=== PATIENT | male | born 1970 | race Caucasian/White ===

== ENCOUNTER 2018-08-11 13:36 | Inpatient (IN) | payer OTHER ==
[2018-08-11 16:00] VITALS: BMI 30.2
--- NOTE | 2018-08-11 17:43 | HP ---
CIWA Score - Admission Criteria [facility]ASAS Guidelines: Admission for Medically Managed Detox: Requires at least one of the followin. CIWA greater than 12 2. Seizures within the past 24 hours 3. Delirium tremens within the past 24 hours 4. Hallucinations within the past 24 hours 5. Acute intervention needed for co occurring medical disorder 6. Acute intervention needed for co occurring psychiatric disorder 7. Severe withdrawal that cannot be handled at a lower level of care (continued vomiting, continued diarrhea, abnormal vital signs) requiring intravenous medication and/or fluids 8. Admission ROS [facility] Chief Complaint: "I am here for cocaine/crack" rehab Allergies/Adverse Reactions: Allergies Allergy/AdvReac Type Severity Reaction Status Date / Time cefaclor [From Ceclor] Allergy Severe Hives Verified 08/11/18 16:21 piperacillin sodium AdvReac Severe numbness Verified 08/11/18 16:21 [From Zosyn] sulfamethoxazole AdvReac Severe fever Verified 08/11/18 16:21 [From Bactrim] tazobactam sodium AdvReac Severe numbness Verified 08/11/18 16:21 [From Zosyn] trimethoprim [From Bactrim] AdvReac Severe fever Verified 08/11/18 16:21 History of Present Illness: Pt was last here 2 years ago for crack cocaine use- says did not use for a year and then relapsed about a year ago. Uses $150/day. Smokes cocaine Lives in [facility], [facility] [employer]. Says cocaine has taken over his life and would like to stop. Medical problems: HIV: VL high, CD4- 38: 04/2018- does not take meds every day. Neuropathy- gabapentin Depression- no meds seizure d/o- takes Keppra asthma- pump DUR/ISTOP: oxycodone 12/2017, none recently urine tox: bob and opiates - Ebola screening Have you traveled outside of the country in the last 21 days: No Have you had contact with anyone from an Ebola affected area: No Have you been sick,other than usual withdrawal symptoms: No Do you have a fever: No - Review of Systems Constitutional: No Symptoms Reported EENT: reports: No Symptoms Reported Respiratory: reports: No Symptoms reported Cardiac: reports: No Symptoms Reported GI: reports: No Symptoms Reported : reports: No Symptoms Reported Musculoskeletal: reports: No Symptoms Reported Integumentary: reports: Other (has wound/rash on both legs, changes dressing daily) Neuro: reports: No Symptoms reported Endocrine: reports: No Symptoms Reported Hematology: reports: No Symptoms Reported Psychiatric: reports: No Sypmtoms Reported Patient History - Patient Medical History Hx Asthma: Yes (Pt is on MDI.) Hx Chronic Obstructive Pulmonary Disease (COPD): No Hx Cancer: Yes (nodules on chest xray) Hx Cardiac Disorders: No Hx Congestive Heart Failure: No Hx Hypertension: No Hx Hypercholesterolemia: No Hx Pacemaker: No HX Cerebrovascular Accident: Yes (2003,COMATOSE X 7 MONTHS) Hx Seizures: No Hx Dementia: No Hx Diabetes: No Hx Gastrointestinal Disorders: No Hx Liver Disease: No Hx Genitourinary Disorders: No Hx Sexually Transmitted Disorders: No Hx Renal Disease (ESRD): No Hx Thyroid Disease: No Hx Human Immunodeficiency Virus (HIV): Yes (hx of pcp) Hx Hepatitis C: No Hx Depression: Yes Hx Suicide Attempt: Yes (Tried to overdose more than 6 months.) Hx Bipolar Disorder: Yes (NO MEDS) Hx Schizophrenia: No Other Medical History: h/o DVT and now with chronic venous stasis both legs - Patient Surgical History Past Surgical History: Yes Hx Neurologic Surgery: No Hx Cataract Extraction: No Hx Cardiac Surgery: No Hx Lung Surgery: No Hx Breast Surgery: No Hx Breast Biopsy: No Hx Abdominal Surgery: Yes (liver resection in 02/19) Hx Appendectomy: No Hx Cholecystectomy: Yes (02/15/14) Hx Genitourinary Surgery: No Hx Section: No Hx Orthopedic Surgery: No Other Surgical History: Rhinoplasty Anesthesia Reaction: Yes - PPD History Previous Implant?: Yes Documented Results: Negative w/o proof Implanted On Prior [facility] Admission?: No Date: 11/25/13 Results: NEG - Smoking Cessation Smoking history: Current every day smoker Have you smoked in the past 12 months: Yes Aproximately how many cigarettes per day: 20 Hx Chewing Tobacco Use: No Initiated information on smoking cessation: Yes 'Breaking Loose' booklet given: 08/11/18 - Substance & Tx. History Hx Alcohol Use: Yes (2 beers day) Substance Use Type: Cocaine (20 bags a day- $150/day) Hx Substance Use Treatment: Yes (has been here 2 days) - Substances Abused Alcohol Route: Oral Frequency: Daily Amount used: 2 four locos Age of first use: 23 Date of Last Use: 08/10/18 Crack Route: Smoking Frequency: Daily Amount used: $100-$150 Age of first use: 24 Date of Last Use: 08/10/18 Family Disease History - Family Disease History Family Disease History: Diabetes: Mother (HTN), Heart Disease: Grandparent (HTN) , Father (HTN), Mother Admission Physical Exam [facility] - Vital Signs Vital Signs: Vital Signs - 24 hr 08/11/18 15:59 Temperature 99.3 F Pulse Rate 82 Respiratory 18 Rate Blood Pressure 123/70 - Physical General Appearance: Yes: Disheveled HEENTM: Yes: Within Normal Limits, Pharynx Normal Respiratory: Yes: Within Normal Limits Neck: Yes: Within Normal Limits Breast: Yes: Breast Exam Deferred Cardiology: Yes: Within Normal Limits Abdominal: Yes: Within Normal Limits Genitourinary: Yes: Other (reddened skin around groin- itchy) Back: Yes: Within Normal Limits Musculoskeletal: Yes: Within Normal Limits Extremities: Yes: Other (has venous stasis changes both legs, R leg more extensive than L, minimal open areas) Neurological: Yes: Within Normal Limits, Fully Oriented, Alert Integumentary: Yes: Other (bilateral venous stasis changes lower extr- R leg worse than L, has had this for many years, no recent change, no warmth to touch. ) [facility] Breath Alcohol Content Breath Alcohol Content: 0 Urine Drug Screen - Results Drug Screen Negative: No Urine Drug Screen Results: BOB-Cocaine, OPI-Opiates Inpatient Rehab Admission - Initial Determination Are CD services needed?: Yes Free of communicable disease: Yes Not in need of hospitalization: No - Rehab Admission Criteria Previous failed treatment: Yes Poor recovery environment: Yes Comorbidities: Yes Lacks judgement: No Patient is meeting Inpatient Rehab admission criteria:: Yes (pt uses cocaine, not taking HIV meds)
[2018-08-11] MEDS ORDERED: MAG HYDROX/AL HYDROX/SIMETH 30 ML UNIT-DOSE CUP PO PRN (18:32)
[2018-08-11] MEDS ORDERED: P-EPHED 60MG/TRIPROLIDI 2.5MG TABLET PO PRN (18:32)
[2018-08-11] MEDS ORDERED: LOPERAMIDE HCL 2 MG CAPSULE PO PRN (18:32)
[2018-08-11] MEDS ORDERED: IBUPROFEN 400 MG TABLET (FP) PO PRN (18:32)
[2018-08-11] MEDS ORDERED: MAGNESIUM CITRATE 300 ML BOTTLE PO PRN (18:32)
[2018-08-11] MEDS ORDERED: guaiFENesin/D-METHORPHAN HB 10 ML UNIT-DOSE CUPS PO PRN (18:32)
[2018-08-11] MEDS ORDERED: MENTHOL/PHENOL 1 EACH UD MM PRN (18:32)
[2018-08-11] MEDS ORDERED: MAGNESIUM HYDROX 2400MG/30ML ORAL SUSPENSION 30 ML CUP PO PRN (18:32)
[2018-08-11] MEDS ORDERED: ACETAMINOPHEN 325 MG TABLET (FP) PO PRN (18:32)
[2018-08-11] MEDS ORDERED: TUBERCULIN PPD 5 TU/0.1ML VIAL ID ONE (21:08)
[2018-08-11] MEDS: GABAPENTIN 300 MG CAPSULE (FP) PO SCH (21:09)
[2018-08-11] MEDS: levETIRAcetam 250 MG TABLET (FP) PO SCH (21:09)
[2018-08-11] MEDS: THIAMINE HCL 100 MG TABLET (FP) PO SCH (21:09)
[2018-08-11] MEDS ORDERED: MELATONIN 5 MG TABLETS PO PRN (22:00)
[2018-08-12 01:31] LABS: URINE APPEARANCE CLOUDY; URINE BILIRUBIN NEGATIVE (<2.0 mg/dL); URINE COLOR AMBER; URINE GLUCOSE (UA) NEGATIVE (NEGATIVE); URINE KETONE NEGATIVE (NEGATIVE); URINE LEUK ESTERASE 2+ (NEGATIVE); URINE NITRITE POSITIVE (NEGATIVE); URINE PROTEIN NEGATIVE (NEGATIVE); URINE UROBILINOGEN NEGATIVE mg/dL (0.2-1.0)
[2018-08-12 01:36] LABS: EPI CELLS RARE /HPF (FEW); URINE BACTERIA MANY /hpf (NONE SEEN); URINE HYALINE CAST 2 /lpf; URINE MUCUS MANY
[2018-08-12] MEDS: GABAPENTIN 300 MG CAPSULE (FP) PO SCH ×3 (06:17→21:04)
[2018-08-12] MEDS: PRENATAL VITAMINS W/ FOLIC ACID TABLET (FP) PO SCH (10:10)
[2018-08-12] MEDS: levETIRAcetam 250 MG TABLET (FP) PO SCH ×2 (10:10→21:04)
[2018-08-12] MEDS: DAPSONE 100 MG TABLET PO SCH (10:10)
[2018-08-12] MEDS: RIVAROXABAN 20 MG TABLET PO SCH (10:11)
[2018-08-12] MEDS: ALBUTEROL SO4 8 GM HFA INHALER IH PRN ×2 (10:15→21:07)
[2018-08-12] MEDS: VITAMINS A AND D TOPICAL OINTMENT 60 GM TUBE TP SCH (11:01)
[2018-08-12] MEDS: PATIENT'S OWN MEDICATION (NON-FORMULARY) (Dolutegravir Sodium [Tivicay] 50 MG) PO SCH (11:01)
[2018-08-12] MEDS: PATIENT'S OWN MEDICATION (NON-FORMULARY) (Emtricitabine/Tenofov Alafenam [Descovy 200-25 M PO SCH (11:01)
[2018-08-12 11:05] LABS: ALBUMIN 3.3 g/dl (3.4-5.0); ALK PHOS 88 U/L (45-117); ANION GAP 5 MMOL/L (8-16); BILIRUBIN,TOTAL 0.2 mg/dL (0.2-1); BLOOD UREA NITROGEN 22 mg/dL (7-18); CALCIUM 8.9 mg/dL (8.5-10.1); CHLORIDE 108 mmol/L (98-107); CO2 28 mmol/L (21-32); GLUCOSE,RANDOM 88 mg/dL (74-106); POTASSIUM 4.3 mmol/L (3.5-5.1); SGOT/AST 23 U/L (15-37); SGPT/ALT 21 U/L (13-61); SODIUM 141 mmol/L (136-145)
[2018-08-12 11:21] LABS: HEMATOCRIT 33.6 % (35.4-49); HEMOGLOBIN 11.4 GM/dL (11.7-16.9); MCH 30.4 pg (25.7-33.7); MEAN CELL VOLUME 89.4 fl (80-96); MEAN PLT VOLUME 8.9 fl (7.5-11.1); PLATELET COUNT 143 K/MM3 (134-434); RBC 3.76 M/mm3 (4.00-5.60); WHITE BLOOD COUNT 2.4 K/mm3 (4.0-10.0)
--- NOTE | 2018-08-12 12:28 | EKG ---
Test Reason : Blood Pressure : / mmHG Vent. Rate : 080 BPM Atrial Rate : 080 BPM P-R Int : 192 ms QRS Dur : 102 ms QT Int : 366 ms P-R-T Axes : 038 015 039 degrees QTc Int : 422 ms NORMAL SINUS RHYTHM NORMAL ECG NO PREVIOUS ECGS AVAILABLE Confirmed by NIKKO GLOVER, JOSE ([id number]) on 08/12/2018 12:27:43 PM Referred By: Confirmed By:JOSE EL MD
[2018-08-12] MEDS: AMINO ACIDS/PROTEIN HYDROLYS 30 ML LIQUID.PKT PO SCH (12:58)
[2018-08-12] MEDS: THIAMINE HCL 100 MG TABLET (FP) PO SCH (21:04)
[2018-08-13] MEDS: GABAPENTIN 300 MG CAPSULE (FP) PO SCH ×3 (06:31→21:03)
[2018-08-13] MEDS: PATIENT'S OWN MEDICATION (NON-FORMULARY) (Emtricitabine/Tenofov Alafenam [Descovy 200-25 M PO SCH (08:50)
[2018-08-13] MEDS: EMTRICITABINE/TENOFOV ALAFENAM (DESCOVY) TABLET PO SCH (08:51)
[2018-08-13] MEDS: PATIENT'S OWN MEDICATION (NON-FORMULARY) (Dolutegravir Sodium [Tivicay] 50 MG) PO SCH (08:51)
[2018-08-13] MEDS: DOLUTEGRAVIR SODIUM 50 MG TABLET (NON-FORMULARY) PO SCH (08:51)
[2018-08-13] MEDS: RIVAROXABAN 20 MG TABLET PO SCH (09:44)
[2018-08-13] MEDS: PRENATAL VITAMINS W/ FOLIC ACID TABLET (FP) PO SCH (09:44)
[2018-08-13] MEDS: levETIRAcetam 250 MG TABLET (FP) PO SCH ×2 (09:44→21:03)
[2018-08-13] MEDS: DAPSONE 100 MG TABLET PO SCH (09:45)
[2018-08-13] MEDS: AMINO ACIDS/PROTEIN HYDROLYS 30 ML LIQUID.PKT PO SCH (09:45)
[2018-08-13] MEDS: VITAMINS A AND D TOPICAL OINTMENT 60 GM TUBE TP SCH (09:45)
[2018-08-13] MEDS ORDERED: PT OWN MED DRAWER 7, Y5N ONE (13:25)
--- NOTE | 2018-08-13 15:11 | HP ---
Psychiatrist Admission - Data Date of interview: 08/13/18 Admission source: [facility] Identifying data: Patient is a 48 year old single male, father of two, unemployed, is medically disabled, domiciled, and is supported by [facility]. This is one of multiple admissions to rehab at [facility]. Patient admitted to rehab for alcohol and cocaine dependence. Medical History: Significant for history of Anemia, Asthma, Seizure Disorder, AIDS, S/P CVA and S/P Cholecystectomy Psychiatric History: Patient's first psychiatric contact was at the age of 21 after his mother . He was diagnosed with anxiety and bipolar disorder and started on paxil and seroquel. Patient's first psychiatric hospitalization was at a hospital in [facility] in his 20's after he had a suicide attempt via overdose. Within the past ten years he has received outpatient care at [place] [facility]. He is currently on seroquel 100mg qhs. Patient reports a second suicide attempt three months ago via overdose/hanging self after his two month old grandson . At present, he reports feeling fine but is c/o difficulty sleeping. He denies current thoughts or urges to hurt self or others. Physical/Sexual Abuse/Trauma History: denies. Vital Signs: Vital Signs - 24 hr 08/13/18 08/13/18 00:30 06:54 Temperature 98.1 F Pulse Rate 83 Respiratory 18 18 Rate Blood Pressure 120/74 Allergies/Adverse Reactions: Allergies Allergy/AdvReac Type Severity Reaction Status Date / Time cefaclor [From Ceclor] Allergy Severe Hives Verified 08/11/18 16:21 piperacillin sodium AdvReac Severe numbness Verified 08/11/18 16:21 [From Zosyn] sulfamethoxazole AdvReac Severe fever Verified 08/11/18 16:21 [From Bactrim] tazobactam sodium AdvReac Severe numbness Verified 08/11/18 16:21 [From Zosyn] trimethoprim [From Bactrim] AdvReac Severe fever Verified 08/11/18 16:21 Date of last physical exam: 08/11/18 Concur with the findings of this exam: Yes - Substance Abuse/Tx History Hx Alcohol Use: Yes (one glass of wine of daily) Hx Substance Use: Yes ($100-150 daily) Substance Use Type: Cocaine Hx Substance Use Treatment: Yes ([facility].) Mental Status Exam - Mental Status Exam Alert and Oriented to: Time, Place, Person Cognitive Function: Good Patient Appearance: Well Groomed (appears older than stated age) Mood: Euthymic Affect: Appropriate Patient Behavior: Appropriate, Cooperative Speech Pattern: Clear, Appropriate Voice Loudness: Normal Thought Process: Intact, Goal Oriented Thought Disorder: Not Present Hallucinations: Denies Suicidal Ideation: Denies Homicidal Ideation: Denies Insight/Judgement: Poor Sleep: Poorly Appetite: Fair Muscle strength/Tone: Normal Gait/Station: Other (Patient ambulates with a rolling walker.) Psychiatric Findings - Problem List ([place] 1, 2,3) (1) Bipolar 1 disorder Current Visit: Yes Status: Acute (2) Cocaine dependence Current Visit: Yes Status: Chronic Qualifiers: Substance use status: uncomplicated Qualified Code(s): F14.20 - Cocaine dependence, uncomplicated (3) Nicotine dependence Current Visit: No Status: Chronic - Initial Treatment Plan Initial Treatment Plan: Psychoeducation provided. Detoxification in progress. Will order Seroquel 100mg qhs. Benefits and side effectis.
[2018-08-13] MEDS: THIAMINE HCL 100 MG TABLET (FP) PO SCH (21:04)
[2018-08-13] MEDS ORDERED: QUEtiapine FUMARATE 100 MG TABLET (FP) PO SCH ×2 (22:00)
[2018-08-14] MEDS: GABAPENTIN 300 MG CAPSULE (FP) PO SCH ×3 (06:23→21:04)
[2018-08-14] MEDS: DOLUTEGRAVIR SODIUM 50 MG TABLET (NON-FORMULARY) PO SCH (08:05)
[2018-08-14] MEDS: EMTRICITABINE/TENOFOV ALAFENAM (DESCOVY) TABLET PO SCH (08:05)
[2018-08-14] MEDS: levETIRAcetam 250 MG TABLET (FP) PO SCH ×2 (09:25→21:05)
[2018-08-14] MEDS: PATIENT'S OWN MEDICATION (NON-FORMULARY) (Emtricitabine/Tenofov Alafenam [Descovy 200-25 M PO SCH (09:25)
[2018-08-14] MEDS: PATIENT'S OWN MEDICATION (NON-FORMULARY) (Dolutegravir Sodium [Tivicay] 50 MG) PO SCH (09:25)
[2018-08-14] MEDS: RIVAROXABAN 20 MG TABLET PO SCH (09:25)
[2018-08-14] MEDS: VITAMINS A AND D TOPICAL OINTMENT 60 GM TUBE TP SCH (09:26)
[2018-08-14] MEDS: PRENATAL VITAMINS W/ FOLIC ACID TABLET (FP) PO SCH (09:26)
[2018-08-14] MEDS: AMINO ACIDS/PROTEIN HYDROLYS 30 ML LIQUID.PKT PO SCH (09:26)
[2018-08-14] MEDS: DAPSONE 100 MG TABLET PO SCH (09:26)
--- NOTE | 2018-08-14 13:25 | PN ---
[facility] Progress Note Note: Pt states he does not want the seroquel- was incontinent last night. Also after discussion with pt, prefers the current schedule for HIV meds
[2018-08-14] MEDS: ALBUTEROL SO4 8 GM HFA INHALER IH PRN (17:56)
[2018-08-14] MEDS: THIAMINE HCL 100 MG TABLET (FP) PO SCH (21:05)
[2018-08-15] MEDS: GABAPENTIN 300 MG CAPSULE (FP) PO SCH ×3 (06:16→21:15)
[2018-08-15] MEDS: EMTRICITABINE/TENOFOV ALAFENAM (DESCOVY) TABLET PO SCH (08:08)
[2018-08-15] MEDS: DOLUTEGRAVIR SODIUM 50 MG TABLET (NON-FORMULARY) PO SCH (08:09)
[2018-08-15] MEDS: levETIRAcetam 250 MG TABLET (FP) PO SCH ×2 (10:40→21:14)
[2018-08-15] MEDS: PRENATAL VITAMINS W/ FOLIC ACID TABLET (FP) PO SCH (11:16)
[2018-08-15] MEDS: DAPSONE 100 MG TABLET PO SCH (11:16)
[2018-08-15] MEDS: RIVAROXABAN 20 MG TABLET PO SCH (11:16)
[2018-08-15] MEDS: VITAMINS A AND D TOPICAL OINTMENT 60 GM TUBE TP SCH (11:17)
[2018-08-15] MEDS: AMINO ACIDS/PROTEIN HYDROLYS 30 ML LIQUID.PKT PO SCH (11:17)
[2018-08-15] MEDS: THIAMINE HCL 100 MG TABLET (FP) PO SCH (21:15)
[2018-08-16] MEDS: GABAPENTIN 300 MG CAPSULE (FP) PO SCH ×3 (06:34→21:09)
[2018-08-16] MEDS: ALBUTEROL SO4 8 GM HFA INHALER IH PRN (06:34)
[2018-08-16] MEDS: DOLUTEGRAVIR SODIUM 50 MG TABLET (NON-FORMULARY) PO SCH (07:10)
[2018-08-16] MEDS: EMTRICITABINE/TENOFOV ALAFENAM (DESCOVY) TABLET PO SCH (07:10)
[2018-08-16] MEDS: RIVAROXABAN 20 MG TABLET PO SCH (09:37)
[2018-08-16] MEDS: DAPSONE 100 MG TABLET PO SCH (09:37)
[2018-08-16] MEDS: levETIRAcetam 250 MG TABLET (FP) PO SCH ×2 (09:37→22:36)
[2018-08-16] MEDS: PRENATAL VITAMINS W/ FOLIC ACID TABLET (FP) PO SCH (09:37)
[2018-08-16] MEDS: VITAMINS A AND D TOPICAL OINTMENT 60 GM TUBE TP SCH (09:39)
[2018-08-16] MEDS: AMINO ACIDS/PROTEIN HYDROLYS 30 ML LIQUID.PKT PO SCH (09:40)
[2018-08-16] MEDS: THIAMINE HCL 100 MG TABLET (FP) PO SCH (21:09)
[2018-08-17] MEDS: GABAPENTIN 300 MG CAPSULE (FP) PO SCH ×3 (06:50→21:06)
[2018-08-17] MEDS: DOLUTEGRAVIR SODIUM 50 MG TABLET (NON-FORMULARY) PO SCH (07:27)
[2018-08-17] MEDS: EMTRICITABINE/TENOFOV ALAFENAM (DESCOVY) TABLET PO SCH (07:27)
[2018-08-17] MEDS: DAPSONE 100 MG TABLET PO SCH (09:44)
[2018-08-17] MEDS: PRENATAL VITAMINS W/ FOLIC ACID TABLET (FP) PO SCH (09:44)
[2018-08-17] MEDS: RIVAROXABAN 20 MG TABLET PO SCH (09:44)
[2018-08-17] MEDS: VITAMINS A AND D TOPICAL OINTMENT 60 GM TUBE TP SCH (09:45)
[2018-08-17] MEDS: AMINO ACIDS/PROTEIN HYDROLYS 30 ML LIQUID.PKT PO SCH (09:45)
[2018-08-17] MEDS: levETIRAcetam 250 MG TABLET (FP) PO SCH ×2 (10:44→21:07)
--- NOTE | 2018-08-17 12:41 | PN ---
[facility] Progress Note Note: PATIENT SEEN FOR C/O BILATERAL LEG PAIN. PATIENT IS ALERT AND ORIENTED X 3. HAS H/O PERIPHERAL NEUROPATHY AND TREATED WITH GABAPENTIN. PE: SKIN WARM AND DRY, AMB WITH WALKER, +REDNESS AND SWELLING TO LOWER LEGS-CHRONIC CONDITION. WILL ADD FLEXERIL 10MG TID PRN FOR PAIN RELIEF, LEG ELEVATION PRN, CONTINUE GABAPENTIN AND CONTINUE TO MONITOR CLINICALLY. Vital Signs Temperature 97.8 F 08/17/18 07:26 Pulse Rate 74 08/17/18 07:26 Respiratory Rate 18 08/17/18 07:26 Blood Pressure 131/77 08/17/18 07:26 O2 Sat by Pulse Oximetry (%)
[2018-08-17] MEDS: CYCLOBENZAPRINE HCL 10 MG TABLET (FP) PO PRN ×2 (14:23→21:08)
[2018-08-17] MEDS: THIAMINE HCL 100 MG TABLET (FP) PO SCH (21:06)
[2018-08-18] MEDS: DOLUTEGRAVIR SODIUM 50 MG TABLET (NON-FORMULARY) PO SCH (07:12)
[2018-08-18] MEDS: EMTRICITABINE/TENOFOV ALAFENAM (DESCOVY) TABLET PO SCH (07:12)
[2018-08-18] MEDS: GABAPENTIN 300 MG CAPSULE (FP) PO SCH (07:12)
[2018-08-18 07:25] VITALS: BP 115/81; PULSE 75; TEMP 97.3
--- NOTE | 2018-08-18 10:14 | PN ---
[facility] Progress Note Note: pt states gabapentin is not working for pain relief> wants to try lyrica Gabapentin discontinued, lyrica ordered pt with HIV and jemma lower leg superficial bilateral lower leg chronic venous stasis ulcers- lyrica for pain
[2018-08-18] MEDS: levETIRAcetam 250 MG TABLET (FP) PO SCH (10:37)
[2018-08-18] MEDS: RIVAROXABAN 20 MG TABLET PO SCH (10:37)
[2018-08-18] MEDS: VITAMINS A AND D TOPICAL OINTMENT 60 GM TUBE TP SCH (10:37)
[2018-08-18] MEDS: DAPSONE 100 MG TABLET PO SCH (10:37)
[2018-08-18] MEDS: PRENATAL VITAMINS W/ FOLIC ACID TABLET (FP) PO SCH (10:37)
[2018-08-18] MEDS: AMINO ACIDS/PROTEIN HYDROLYS 30 ML LIQUID.PKT PO SCH (10:37)
--- NOTE | 2018-08-18 11:24 | PN ---
Psychiatric Progress Note Vital Signs: Vital Signs Period Temp Pulse Resp BP Sys/Cortes Pulse Ox Last 24 Hr 97.3 F 75 18-18 115/81 Date of Session: 08/18/18 Chief Complaint:: "Discharge" HPI: Patient admitted to rehab for alcohol and cocaine dependence. ROS: Significant for history of Anemia, Asthma, Seizure Disorder, AIDS, S/P CVA and S/P Cholecystectomy Current Medications: Active Medications Generic Name Dose Route Start Last Admin Trade Name Freq PRN Reason Stop Dose Admin Acetaminophen 650 mg 08/11/18 18:32 08/14/18 17:57 Tylenol - PO 650 mg Q4H PRN Administration FEVER Al Hydroxide/Mg Hydroxide 30 ml 08/11/18 18:32 Mylanta Oral Suspension - PO Q6H PRN DYSPEPSIA Albuterol Sulfate 2 puff 08/11/18 18:33 08/16/18 06:34 Ventolin Hfa Inhaler - IH 2 puff Q4H PRN Administration ASTHMA Amino Acids 30 ml 08/12/18 10:30 08/18/18 10:37 Prosource No Carb Liquid Pkt PO 30 ml DAILY JN Administration Cyclobenzaprine HCl 10 mg 08/17/18 12:37 08/17/18 21:08 Flexeril - PO 10 mg TID PRN Administration MUSCLE SPASMS Dapsone 100 mg 08/12/18 10:00 08/18/18 10:37 Dapsone - PO 100 mg DAILY JN Administration Eucalyptus/Menthol/Phenol/Sorbitol 1 each 08/11/18 18:32 Cepastat Lozenge - MM Q4H PRN SORE THROAT Guaifenesin 10 ml 08/11/18 18:32 Robitussin Dm - PO Q6H PRN COUGH Levetiracetam 750 mg 08/11/18 22:00 08/18/18 10:37 Keppra - PO 750 mg BID JN Administration Loperamide HCl 4 mg 08/11/18 18:32 Imodium - PO Q6H PRN DIARRHEA Magnesium Citrate 300 ml 08/11/18 18:32 Citroma - PO Q48H PRN CONSTIPATION Magnesium Hydroxide 30 ml 08/11/18 18:32 Milk Of Magnesia - PO DAILY PRN CONSTIPATION Melatonin 5 mg 08/11/18 22:00 Melatonin PO HS PRN INSOMNIA Pregabalin 50 mg 08/18/18 14:00 Lyrica - PO 08/25/18 13:59 TID JN Multivit/Folic Acid/Iron 1 tab 08/12/18 10:00 08/18/18 10:37 Vitamins (Sjr) - PO 1 tab DAILY JN Administration Pseudoephedrine/Triprolidine 1 combo 08/11/18 18:32 Actifed - PO TID PRN NASAL CONGESTION Rivaroxaban 20 mg 08/12/18 10:00 08/18/18 10:37 Xarelto - PO 20 mg DAILY JN Administration Thiamine HCl 100 mg 08/11/18 22:00 08/17/18 21:06 Vitamin B1 - PO 100 mg HS JN Administration Vitamin A/Vitamin D 1 applic 08/12/18 10:15 08/18/18 10:37 Vitamin A & D Top Oint - TP 1 applic DAILY JN Administration Medication(s) Change(s): No. Current Side Effect: No Lab tests ordered: No Lab tests reviewed: Yes Provider note:: Patient given an early discharge on 08/18/18. Patient states he is ready to go home and will continue outpatient treatment at the [facility]. Patient reports being aware of having to make better decisions in order to avoid relapsing on alcohol and cocaine. Patient feels safe and denies suicidal and homicidal ideation. Patient is stable for discharge on 08/18/18. Total face to face time:: 35 Mental Status Exam - Mental Status Exam Alert and Oriented to: Time, Place, Person Cognitive Function: Good Patient Appearance: Well Groomed Mood: Euthymic Affect: Appropriate Patient Behavior: Cooperative Speech Pattern: Appropriate Voice Loudness: Normal Thought Process: Intact, Goal Oriented Thought Disorder: Not Present Hallucinations: Denies Suicidal Ideation: Denies Homicidal Ideation: Denies Insight/Judgement: Good Sleep: Well Appetite: Good Muscle strength/Tone: Normal Gait/Station: Normal Psychiatric Treatment Plan - Problem List (1) Bipolar 1 disorder Current Visit: No (2) Cocaine dependence Current Visit: Yes Qualifiers: Substance use status: uncomplicated Qualified Code(s): F14.20 - Cocaine dependence, uncomplicated (3) Nicotine dependence Current Visit: No
[2018-08-18] MEDS ORDERED: PREGABALIN 50 MG CAPSULE PO SCH (14:00)
== END 2018-08-18 11:55 | disposition home or self-care (01) | DRG 772 ==
LOC: YASAS 13:36 → Y5N 17:24
PROVIDERS: ADMIT Psychiatry & Neurology Psychiatry; ATTEND Psychiatry & Neurology Psychiatry
PROC: HZ42ZZZ Group Counseling for Substance Abuse Treatment, Cognitive-Behavioral (ICD-10-PCS; principal; 2018-08-11)
PROC: HZ42ZZZ Group Counseling for Substance Abuse Treatment, Cognitive-Behavioral (ICD-10-PCS; 2018-08-11)
DX: F10.20 Alcohol dependence, uncomplicated (principal); F14.20 Cocaine dependence, uncomplicated; F17.210 Nicotine dependence, cigarettes, uncomplicated; F31.9 Bipolar disorder, unspecified; B20 Human immunodeficiency virus [HIV] disease; G62.9 Polyneuropathy, unspecified; I87.2 Venous insufficiency (chronic) (peripheral); M25.561 Pain in right knee; M25.562 Pain in left knee; J45.20 Mild intermittent asthma, uncomplicated; G40.909 Epilepsy, unspecified, not intractable, without status epilepticus; D64.9 Anemia, unspecified; R26.89 Other abnormalities of gait and mobility; Z99.89 Dependence on other enabling machines and devices; Z86.73 Personal history of transient ischemic attack (TIA), and cerebral infarction without residual deficits; Z86.718 Personal history of other venous thrombosis and embolism; Z79.01 Long term (current) use of anticoagulants; Z91.5 Personal history of self-harm
CPT/HCPCS: 36415; 80053; 81003; 81015; 85027; 86593; 93005; 93010

== ENCOUNTER 2019-06-09 12:36 | Inpatient (IN) | payer OTHER ==
[2019-06-09 14:58] VITALS: BMI 31.6
--- NOTE | 2019-06-09 16:53 | HP ---
CIWA Score - Admission Criteria OASAS Guidelines: Admission for Medically Managed Detox: Requires at least one of the followin. CIWA greater than 12 2. Seizures within the past 24 hours 3. Delirium tremens within the past 24 hours 4. Hallucinations within the past 24 hours 5. Acute intervention needed for co occurring medical disorder 6. Acute intervention needed for co occurring psychiatric disorder 7. Severe withdrawal that cannot be handled at a lower level of care (continued vomiting, continued diarrhea, abnormal vital signs) requiring intravenous medication and/or fluids 8. Admitting History and Physical - Smoking History Smoking history: Current every day smoker Have you smoked in the past 12 months: Yes Aproximately how many cigarettes per day: 20 - Alcohol/Substance Use Hx Alcohol Use: Yes (one glass of wine of daily) Admission ROS [facility] Chief Complaint: Here because you use crack and need rehab. Allergies/Adverse Reactions: Allergies Allergy/AdvReac Type Severity Reaction Status Date / Time cefaclor [From Ceclor] Allergy Severe Hives Verified 06/09/19 14:51 piperacillin sodium AdvReac Severe numbness Verified 06/09/19 14:51 [From Zosyn] tazobactam sodium AdvReac Severe numbness Verified 06/09/19 14:51 [From Zosyn] trimethoprim [From Bactrim] AdvReac Severe fever Verified 06/09/19 14:51 History of Present Illness: 48 yo presents w/ crack/cocaine use disorder and seeking rehab. 06/05/19 seen in [facility] for severe chest pain and told r/t crack/ cocaine use. States EKG done. Crack/cocaine use since age 23. Current use about $1-200/day. Smokes and also sniff. Alcohol use since age [age]. Drinks 1 glass wine daily. I spoe w/ patient's pharmacist, Vipul Froilan who confirms the current doses and compliance w/ refills of prescribed home mediations. PMHx: HIV + (has not seen provider in 6 months); Neuropathy (takes gabapentin); HTN; Seizures takes (Keppra), Chronic DVT's; Hx: PE; IVC filter insitu; Cardiac Stents; Enlarged prostate MHHx: Depression/sadness. Denies thoughts of harming self or others. SHx: Domiciled. Unemployed (SSD) Search Terms: Dick Camarena, 1970 Search Date: 06/09/2019 04:51:25 PM The Drug Utilization Report below displays all of the controlled substance prescriptions, if any, that your patient has filled in the last twelve months. The information displayed on this report is compiled from pharmacy submissions to the Department, and accurately reflects the information as submitted by the pharmacies. This report was requested by: Claudette Marie | Reference #: [id number] There are no results for the search terms that you entered. Search Terms: Dick Camarena, 1970 Search Date: 06/09/2019 04:53:19 PM States Searched: [place], [place], [place], [place], [place], [place], [place] The Drug Utilization Report below displays the controlled substance prescriptions, if any, that were dispensed in the indicated state(s). The information displayed on this report is compiled from requests submitted to other states' PMPs, and accurately reflects the information as returned by them. Blank irwin indicate data not provided by other state. This report was requested by: Claudette Marie | Reference #: [id number] There are no results for the search terms that you entered. Exam Limitations: No Limitations - Ebola screening Have you traveled outside of the country in the last 21 days: No Have you had contact with anyone from an Ebola affected area: No Have you been sick,other than usual withdrawal symptoms: No Do you have a fever: No - Review of Systems Constitutional: Changes in sleep (Difficulty falling asleep and staying asleep) EENT: reports: Blurred Vision, Dental Problems (No teeth. Chews and swallows ok. ) Respiratory: reports: SOB with Exertion Cardiac: reports: No Symptoms Reported GI: reports: No Symptoms Reported : reports: Incontinence (Urge incontinence.) Musculoskeletal: reports: Other ((R) leg bigger than (L)) Integumentary: reports: Rash Neuro: reports: Numbness (in feet and legs), Ataxia (Balance problems and uses a walker) Endocrine: reports: No Symptoms Reported Hematology: reports: Anemia (? Low WBC's), Blood Clots Psychiatric: reports: Judgement Intact, Orientated x3, Depressed (Denies thoughts of harming self or others) Patient History - Patient Medical History Hx Anemia: Yes (LYMPHOMA) Hx Asthma: Yes (Pt is on MDI.) Hx Chronic Obstructive Pulmonary Disease (COPD): No Hx Cancer: Yes (nodules on chest xray) Hx Cardiac Disorders: No Hx Congestive Heart Failure: No Hx Hypertension: No Hx Hypercholesterolemia: No Hx Pacemaker: No HX Cerebrovascular Accident: Yes (2003,COMATOSE X 7 MONTHS) Hx Seizures: No Hx Dementia: No Hx Diabetes: No Hx Gastrointestinal Disorders: No Hx Liver Disease: No Hx Genitourinary Disorders: No Hx Sexually Transmitted Disorders: No Hx Renal Disease (ESRD): No Hx Thyroid Disease: No Hx Human Immunodeficiency Virus (HIV): Yes (hx of pcp) Hx Hepatitis C: No Hx Depression: Yes Hx Suicide Attempt: Yes (Tried to overdose more than 6 months.) Hx Bipolar Disorder: Yes (NO MEDS) Hx Schizophrenia: No - Patient Surgical History Past Surgical History: Yes Hx Neurologic Surgery: No Hx Cataract Extraction: No Hx Cardiac Surgery: No Hx Lung Surgery: No Hx Breast Surgery: No Hx Breast Biopsy: No Hx Abdominal Surgery: Yes (liver resection in 02/19) Hx Appendectomy: No Hx Cholecystectomy: Yes (02/15/14) Hx Genitourinary Surgery: No Hx Section: No Hx Orthopedic Surgery: No Other Surgical History: Rhinoplasty Anesthesia Reaction: Yes - PPD History Previous Implant?: Yes Documented Results: Negative w/proof Implanted On Prior R Admission?: Yes Date: 08/13/18 Results: NEG PPD to be Administered?: No - Smoking Cessation Smoking history: Current every day smoker Have you smoked in the past 12 months: Yes Aproximately how many cigarettes per day: 20 Hx Chewing Tobacco Use: No Initiated information on smoking cessation: Yes 'Breaking Loose' booklet given: 06/09/19 - Substance & Tx. History Hx Alcohol Use: Yes (1 glass wine daily) Hx Substance Use: Yes Substance Use Type: Cocaine Hx Substance Use Treatment: Yes (rehab, ) - Substances abused Cocaine Substance route: Inhalation Frequency: Daily Amount used: 8 ball Age of first use: 23 Date of last use: 06/05/19 Crack Substance route: Smoking Frequency: Daily Amount used: $200-300 Age of first use: 23 Date of last use: 06/05/19 Admission Physical Exam B[facility] - Vital Signs Vital Signs: Vital Signs - 24 hr 06/09/19 14:54 Temperature 98.7 F Pulse Rate 74 Respiratory 20 Rate Blood Pressure 114/70 - Physical General Appearance: Yes: Nourished, Obese HEENTM: Yes: EOMI, Hearing grossly Normal, Normocephalic, Normal Voice, MIGUEL, Pharynx Normal Respiratory: Yes: Lungs Clear (Pulse Ox = 96), Normal Breath Sounds, No Respiratory Distress Neck: Yes: No masses,lesions,Nodules, Supple Breast: Yes: Breast Exam Deferred Cardiology: Yes: Regular Rhythm, Regular Rate, S1, S2 Abdominal: Yes: Non Tender, Soft, Increased Bowel Sounds Genitourinary: Yes: Incontinient (Urge incontinence), Other (Increased erythema in perianal area) Back: Yes: Normal Inspection Musculoskeletal: Yes: full range of Motion, Other (Stable w/ use of walker) Extremities: Yes: Normal Capillary Refill, Other (Deeper rjestrjg-diamal-tgj coloration from toes to mid calf (R) >(L)) Neurological: Yes: medical equipment repairer II-XII NML intact, Fully Oriented, Alert, Motor Strength 5/5 Integumentary: Yes: Warm, Erythema (increased erythema and mosit skin in rebecca- anal area), Rash (Dry, flaky rash on feet), Pitting Edema ((L) calf = 15"/ ankle = 9 3/4 " (R) calf = 16 1/4"/ ankle 11") Lymphatic: Yes: Within Normal Limits - Diagnostic (1) HIV (human immunodeficiency virus infection) Current Visit: Yes Status: Chronic Qualifiers: HIV symptom status: unspecified Qualified Code(s): B20 - Human immunodeficiency virus [HIV] disease (2) Tinea pedis Current Visit: Yes Status: Chronic Qualifiers: Laterality: bilateral Qualified Code(s): B35.3 - Tinea pedis (3) Tinea cruris Current Visit: Yes Status: Chronic (4) COPD (chronic obstructive pulmonary disease) Current Visit: Yes Status: Chronic Qualifiers: COPD type: unspecified COPD Qualified Code(s): J44.9 - Chronic obstructive pulmonary disease, unspecified (5) Cocaine dependence Current Visit: Yes Status: Chronic Qualifiers: Substance use status: uncomplicated Qualified Code(s): F14.20 - Cocaine dependence, uncomplicated (6) Nicotine dependence Current Visit: Yes Status: Chronic Qualifiers: Nicotine product type: cigarettes Substance use status: uncomplicated Qualified Code(s): F17.210 - Nicotine dependence, cigarettes, uncomplicated (7) Essential (primary) hypertension Current Visit: Yes Status: Chronic (8) History of seizures Current Visit: Yes Status: Chronic (9) History of DVT (deep vein thrombosis) Current Visit: Yes Status: Chronic (10) History of pulmonary embolus (PE) Current Visit: Yes Status: Chronic (11) Presence of IVC filter Current Visit: Yes Status: Chronic (12) Neuropathy Current Visit: Yes Status: Chronic Comment: w/ unsteady gait (13) Leg edema Current Visit: Yes Status: Chronic (14) History of insomnia Current Visit: Yes Status: Chronic (15) History of heart artery stent Current Visit: Yes Status: Chronic Cleared for Admission [facility] - Detox or Rehab Claeared for Rehab Admission: Yes Breathalyzer - Breathalyzer Breathalyzer: 0 Urine Drug Screen - Test Device Lot number: [id number] Expiration date: 02/05/21 - Control Is test valid?: Yes - Results Drug screen NEGATIVE: No Urine drug screen results: ESTEBAN-Cocaine Inpatient Rehab Admission - Rehab Decision to Admit Inpatient rehab admission?: Yes - Initial Determination Are CD services needed?: Yes Free of communicable disease: Yes Not in need of hospitalization: Yes - Rehab Admission Criteria Previous failed treatment: Yes Poor recovery environment: Yes Comorbidities: Yes Lacks judgement: No Patient is meeting Inpatient Rehab admission criteria:: Yes
[2019-06-09] MEDS ORDERED: IBUPROFEN 400 MG TABLET (FP) PO PRN (17:54)
[2019-06-09] MEDS ORDERED: guaiFENesin 200 MG/10 ML 10 ML UNIT-DOSE CUPS PO PRN (17:54)
[2019-06-09] MEDS ORDERED: P-EPHED 60MG/TRIPROLIDI 2.5MG TABLET PO PRN (17:54)
[2019-06-09] MEDS ORDERED: MAGNESIUM CITRATE 300 ML BOTTLE PO PRN (17:54)
[2019-06-09] MEDS ORDERED: MAG HYDROX/AL HYDROX/SIMETH 30 ML UNIT-DOSE CUP PO PRN (17:54)
[2019-06-09] MEDS ORDERED: NICOTINE POLACRILEX 2 MG GUM BC PRN (17:54)
[2019-06-09] MEDS ORDERED: MENTHOL/PHENOL 1 EACH UD MM PRN (17:54)
[2019-06-09] MEDS ORDERED: hydrOXYzine PAMOATE 25 MG CAPSULE (FP) PO PRN (17:54)
[2019-06-09] MEDS ORDERED: MAGNESIUM HYDROX 2400MG/30ML ORAL SUSPENSION 30 ML CUP PO PRN (17:54)
[2019-06-09] MEDS ORDERED: ACETAMINOPHEN 325 MG TABLET (FP) PO PRN (17:54)
[2019-06-09] MEDS ORDERED: LOPERAMIDE HCL 2 MG CAPSULE PO PRN (17:54)
[2019-06-09] MEDS: levETIRAcetam 500 MG TABLET (FP) PO SCH (21:16)
[2019-06-09] MEDS: GABAPENTIN 300 MG CAPSULE (FP) PO SCH (21:16)
[2019-06-09] MEDS: THIAMINE HCL 100 MG TABLET (FP) PO SCH (21:17)
[2019-06-09] MEDS ORDERED: MELATONIN 5 MG TABLETS PO PRN (22:00)
[2019-06-10] MEDS: amLODIPine BESYLATE 5 MG TABLET (FP) PO SCH (10:03)
[2019-06-10] MEDS: GABAPENTIN 300 MG CAPSULE (FP) PO SCH ×2 (10:03→21:19)
[2019-06-10] MEDS: PRENATAL VITAMINS W/ FOLIC ACID TABLET (FP) PO SCH (10:03)
[2019-06-10] MEDS: levETIRAcetam 500 MG TABLET (FP) PO SCH ×2 (10:03→21:19)
[2019-06-10] MEDS: SULFAMETHOXAZOLE/TRIMETHOPRIM 400MG/80MG S.S. TABLET PO SCH (10:04)
[2019-06-10 10:48] LABS: HEMATOCRIT 32.3 % (35.4-49); MCH 30.2 pg (25.7-33.7); MCHC 33.9 g/dl (32.0-35.9); MEAN PLT VOLUME 8.7 fl (7.5-11.1); PLATELET COUNT 124 K/MM3 (134-434); RBC 3.63 M/mm3 (4.00-5.60); RDW 15.7 % (11.9-15.9)
[2019-06-10 11:06] LABS: WHITE BLOOD COUNT 1.6 K/mm3 (4.0-10.0)
[2019-06-10 11:13] LABS: INR 0.97 (0.83-1.09); PROTHROMBIN TIME (PATIENT) 11.5 SEC (9.7-13.0)
[2019-06-10 11:15] LABS: ALBUMIN 3.3 g/dl (3.4-5.0); BILIRUBIN,TOTAL 0.4 mg/dL (0.2-1); BLOOD UREA NITROGEN 18.8 mg/dL (7-18); CALCIUM 8.3 mg/dL (8.5-10.1); CREATININE 0.9 mg/dL (0.55-1.3); POTASSIUM 4.2 mmol/L (3.5-5.1); TOT PROT 6.2 g/dl (6.4-8.2)
[2019-06-10] MEDS: EMTRICITABINE/TENOFOV ALAFENAM (DESCOVY) TABLET PO SCH (11:17)
[2019-06-10] MEDS: DOLUTEGRAVIR SODIUM 50 MG TABLET (NON-FORMULARY) PO SCH (11:17)
[2019-06-10] MEDS: DAPSONE 100 MG TABLET PO SCH (11:18)
[2019-06-10] MEDS: TIOTROPIUM BROMIDE 2.5 MCG (SPIRIVA) RESPIMAT INHALER IH SCH (11:21)
[2019-06-10] MEDS: RIVAROXABAN 20 MG TABLET PO SCH (17:35)
[2019-06-10] MEDS: THIAMINE HCL 100 MG TABLET (FP) PO SCH (21:19)
--- NOTE | 2019-06-10 21:44 | PN ---
[facility] Progress Note Note: Vital Signs Temperature 98.0 F 06/10/19 07:09 Pulse Rate 69 06/10/19 07:09 Respiratory Rate 18 06/10/19 07:09 Blood Pressure 108/81 06/10/19 07:09 O2 Sat by Pulse Oximetry (%) Laboratory Last Values WBC 1.6 K/mm3 (4.0-10.0) L* 06/10/19 08:13 RBC 3.63 M/mm3 (4.00-5.60) L 06/10/19 08:13 Hgb 11.0 GM/dL (11.7-16.9) L 06/10/19 08:13 Hct 32.3 % (35.4-49) L 06/10/19 08:13 MCV 89.0 fl (80-96) 06/10/19 08:13 MCH 30.2 pg (25.7-33.7) 06/10/19 08:13 MCHC 33.9 g/dl (32.0-35.9) 06/10/19 08:13 RDW 15.7 % (11.9-15.9) D 06/10/19 08:13 Plt Count 124 K/MM3 (134-434) L 06/10/19 08:13 MPV 8.7 fl (7.5-11.1) 06/10/19 08:13 PT with INR 11.50 SEC (9.7-13.0) 06/10/19 08:05 INR 0.97 (0.83-1.09) 06/10/19 08:05 Sodium 142 mmol/L (136-145) 06/10/19 08:13 Potassium 4.2 mmol/L (3.5-5.1) 06/10/19 08:13 Chloride 110 mmol/L (98-107) H 06/10/19 08:13 Carbon Dioxide 27 mmol/L (21-32) 06/10/19 08:13 Anion Gap 6 MMOL/L (8-16) L 06/10/19 08:13 BUN 18.8 mg/dL (7-18) H 06/10/19 08:13 Creatinine 0.9 mg/dL (0.55-1.3) 06/10/19 08:13 Est GFR (CKD-EPI)AfAm 118.30 06/10/19 08:13 Est GFR (CKD-EPI)NonAf 102.07 06/10/19 08:13 Random Glucose 99 mg/dL (74-106) 06/10/19 08:13 Calcium 8.3 mg/dL (8.5-10.1) L 06/10/19 08:13 Total Bilirubin 0.4 mg/dL (0.2-1) 06/10/19 08:13 AST 18 U/L (15-37) 06/10/19 08:13 ALT 18 U/L (13-61) 06/10/19 08:13 Alkaline Phosphatase 75 U/L (45-117) 06/10/19 08:13 Total Protein 6.2 g/dl (6.4-8.2) L 06/10/19 08:13 Albumin 3.3 g/dl (3.4-5.0) L 06/10/19 08:13 RPR Titer Nonreactive (NONREACTIVE) 06/10/19 08:13 c/o chronic fungal infection on bilateral lower extremities and chronic jock it. Patient AOx3 no distress no adventitious breath sounds + flay skin, and erythema full ROM, ambulates with rollator repeat cbc in AM ketoconazole BID x 2 weeks b/l lower extremities patient to follow up with PCP upon discharge continue to monitor
[2019-06-10] MEDS ORDERED: KETOCONAZOLE 2% CREAM - 60GM TUBE TP SCH (21:45)
[2019-06-11] MEDS: KETOCONOZOLE 2% TOPICAL CREAM 15 GM TUBE TP SCH (10:15)
[2019-06-11] MEDS: GABAPENTIN 300 MG CAPSULE (FP) PO SCH ×2 (10:17→21:18)
[2019-06-11] MEDS: amLODIPine BESYLATE 5 MG TABLET (FP) PO SCH (10:17)
[2019-06-11] MEDS: DAPSONE 100 MG TABLET PO SCH (10:17)
[2019-06-11] MEDS: PRENATAL VITAMINS W/ FOLIC ACID TABLET (FP) PO SCH (10:17)
[2019-06-11] MEDS: AZITHROMYCIN 600 MG TABLET PO SCH (10:17)
[2019-06-11] MEDS: levETIRAcetam 500 MG TABLET (FP) PO SCH ×2 (10:17→21:18)
[2019-06-11] MEDS: EMTRICITABINE/TENOFOV ALAFENAM (DESCOVY) TABLET PO SCH (10:18)
[2019-06-11] MEDS: SULFAMETHOXAZOLE/TRIMETHOPRIM 400MG/80MG S.S. TABLET PO SCH (10:19)
[2019-06-11] MEDS: DOLUTEGRAVIR SODIUM 50 MG TABLET (NON-FORMULARY) PO SCH (10:20)
[2019-06-11] MEDS: TIOTROPIUM BROMIDE 2.5 MCG (SPIRIVA) RESPIMAT INHALER IH SCH (10:21)
--- NOTE | 2019-06-11 11:23 | CONSULT ---
[facility] Psychiatric Consult - Data Date of interview: 06/11/19 Admission source: Self-referred Identifying data: Mr Camarena is a 48 years old single male, father of 2 sons, unemployed receving SSI, domiciled self-referred for admission to rehab on 06/11/19 for cocaine Substance Abuse History: Reports history of crack cocaine use. Refer to addiction counseling for further information Medical History: Significant for anemia, bronchial asthma, HIV+/AIDS, neuropathy , hypertension, coronary artery disease(stent placement), seizure disorder, benign prostatic hypertrophy, history of chronic deep venous thrombosis, pulmonary embolism(insertion of ivc filter), cerebrovascular accident, and surgeries(cholecystectomy, liver resction, rhinoplasty). Smokes cigarettes 1 ppd Psychiatric History: Patient's first psychiatric contact was at the age of 20 after his best friend . Reports that he saw a psychiatrist at [facility] in [place], [place], dagnosed with Bipolar Disorder and started on medications. Reports that his first psychiatric hospitalization was at age [age] following the of his mother. He was admitted to [facility] for suicidal attempt via overdose on pills. Reports 3-4 subsequenyt psychiatric hospitalizations at various facilities including [facility] in [place], [place], [facility] in [place](now defunct) and most recently in 2017 at [facility]. Reports that most recent outpatient treatment was at [facility]. Reportedly he was prescribed Paxil and Seroquel. Claims his last visit there was 3-4 years ago. 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 At present, denies experiencing psychotic, manic or depressive symptoms, S/H ideations. However, reports sleeping poorly. Requests increase in Seroquel dose. Physical/Sexual Abuse/Trauma History: Denies history of emotional, physical or sexual abuse as well as DV relationship Additional Comment: Reports history of 2-3 previous arrests on charges of possession Mental Status Exam - Mental Status Exam Alert and Oriented to: Time, Place, Person Cognitive Function: Fair Patient Appearance: Well Groomed Mood: Hopeful, Euthymic Patient Behavior: Cooperative Speech Pattern: Clear Voice Loudness: Normal Thought Process: Intact Thought Disorder: Not Present Hallucinations: Denies Suicidal Ideation: Denies Homicidal Ideation: Denies Insight/Judgement: Fair Sleep: Poorly Appetite: Good Muscle strength/Tone: Normal Gait/Station: Normal Psychiatric Findings - Problem List ([place] 1, 2,3) (1) Bipolar disorder Current Visit: Yes Status: Chronic (2) Substance-induced sleep disorder Current Visit: Yes Status: Acute (3) Cocaine dependence Current Visit: Yes Status: Acute Qualifiers: Substance use status: uncomplicated Qualified Code(s): F14.20 - Cocaine dependence, uncomplicated (4) Nicotine dependence Current Visit: Yes Status: Chronic Qualifiers: Nicotine product type: cigarettes Substance use status: uncomplicated Qualified Code(s): F17.210 - Nicotine dependence, cigarettes, uncomplicated (5) COPD (chronic obstructive pulmonary disease) Current Visit: Yes Status: Chronic Qualifiers: COPD type: unspecified COPD Qualified Code(s): J44.9 - Chronic obstructive pulmonary disease, unspecified (6) Asthma Current Visit: No Status: Chronic Qualifiers: Asthma severity: mild intermittent Asthma complication type: uncomplicated Qualified Code(s): J45.20 - Mild intermittent asthma, uncomplicated (7) Anemia Current Visit: Yes Status: Chronic (8) HIV (human immunodeficiency virus infection) Current Visit: Yes Status: Chronic Qualifiers: HIV symptom status: unspecified Qualified Code(s): B20 - Human immunodeficiency virus [HIV] disease (9) AIDS (acquired immune deficiency syndrome) Current Visit: No Status: Chronic (10) HIV-1 associated autonomic neuropathy Current Visit: Yes Status: Chronic (11) Seizure disorder Current Visit: Yes Status: Acute (12) Essential (primary) hypertension Current Visit: Yes Status: Chronic (13) BPH (benign prostatic hyperplasia) Current Visit: Yes Status: Chronic (14) History of DVT (deep vein thrombosis) Current Visit: Yes Status: Resolved (15) History of heart artery stent Current Visit: Yes Status: Chronic (16) History of pulmonary embolus (PE) Current Visit: Yes Status: Resolved (17) Presence of IVC filter Current Visit: Yes Status: Chronic - Initial Treatment Plan Initial Treatment Plan: 1) Start Seroquel 100 mg po HS. 2) Continue inpatient rehabilitation
[2019-06-11 15:04] LABS: BASO % 0.8 % (0-2.0); EOS % 12.5 % (0-4.5); HEMATOCRIT 31.7 % (35.4-49); HEMOGLOBIN 10.8 GM/dL (11.7-16.9); LYMPH % 22.5 % (8-40); MCH 30.4 pg (25.7-33.7); MCHC 34.1 g/dl (32.0-35.9); MEAN CELL VOLUME 89.2 fl (80-96); MEAN PLT VOLUME 8.7 fl (7.5-11.1); NEUT % 58.2 % (42.8-82.8); PLATELET COUNT 121 K/MM3 (134-434); RBC 3.55 M/mm3 (4.00-5.60); RDW 15.6 % (11.9-15.9); WHITE BLOOD COUNT 2.2 K/mm3 (4.0-10.0)
[2019-06-11] MEDS: RIVAROXABAN 20 MG TABLET PO SCH (17:47)
[2019-06-11] MEDS: QUEtiapine FUMARATE 100 MG TABLET (FP) PO SCH (21:18)
[2019-06-11] MEDS: THIAMINE HCL 100 MG TABLET (FP) PO SCH (21:19)
[2019-06-12] MEDS: DOLUTEGRAVIR SODIUM 50 MG TABLET (NON-FORMULARY) PO SCH (09:55)
[2019-06-12] MEDS: DAPSONE 100 MG TABLET PO SCH (09:55)
[2019-06-12] MEDS: amLODIPine BESYLATE 5 MG TABLET (FP) PO SCH (09:55)
[2019-06-12] MEDS: SULFAMETHOXAZOLE/TRIMETHOPRIM 400MG/80MG S.S. TABLET PO SCH (09:55)
[2019-06-12] MEDS: levETIRAcetam 500 MG TABLET (FP) PO SCH ×2 (09:55→21:19)
[2019-06-12] MEDS: PRENATAL VITAMINS W/ FOLIC ACID TABLET (FP) PO SCH (09:55)
[2019-06-12] MEDS: GABAPENTIN 300 MG CAPSULE (FP) PO SCH ×2 (09:55→21:19)
[2019-06-12] MEDS: KETOCONOZOLE 2% TOPICAL CREAM 15 GM TUBE TP SCH (09:56)
[2019-06-12] MEDS: EMTRICITABINE/TENOFOV ALAFENAM (DESCOVY) TABLET PO SCH (09:56)
[2019-06-12] MEDS: RIVAROXABAN 20 MG TABLET PO SCH (18:03)
[2019-06-12] MEDS: TIOTROPIUM BROMIDE 2.5 MCG (SPIRIVA) RESPIMAT INHALER IH SCH (18:06)
[2019-06-12] MEDS: QUEtiapine FUMARATE 100 MG TABLET (FP) PO SCH (21:19)
[2019-06-12] MEDS: THIAMINE HCL 100 MG TABLET (FP) PO SCH (21:20)
[2019-06-13] MEDS: levETIRAcetam 500 MG TABLET (FP) PO SCH ×2 (10:03→21:09)
[2019-06-13] MEDS: DAPSONE 100 MG TABLET PO SCH (10:03)
[2019-06-13] MEDS: GABAPENTIN 300 MG CAPSULE (FP) PO SCH ×2 (10:03→21:09)
[2019-06-13] MEDS: SULFAMETHOXAZOLE/TRIMETHOPRIM 400MG/80MG S.S. TABLET PO SCH (10:03)
[2019-06-13] MEDS: amLODIPine BESYLATE 5 MG TABLET (FP) PO SCH (10:03)
[2019-06-13] MEDS: DOLUTEGRAVIR SODIUM 50 MG TABLET (NON-FORMULARY) PO SCH (10:03)
[2019-06-13] MEDS: EMTRICITABINE/TENOFOV ALAFENAM (DESCOVY) TABLET PO SCH (10:03)
[2019-06-13] MEDS: TIOTROPIUM BROMIDE 2.5 MCG (SPIRIVA) RESPIMAT INHALER IH SCH (10:04)
[2019-06-13] MEDS: PRENATAL VITAMINS W/ FOLIC ACID TABLET (FP) PO SCH (10:06)
[2019-06-13] MEDS: KETOCONOZOLE 2% TOPICAL CREAM 15 GM TUBE TP SCH (10:06)
[2019-06-13] MEDS ORDERED: ALBUTEROL SO4 8 GM HFA INHALER IH PRN (15:47)
[2019-06-13] MEDS: RIVAROXABAN 20 MG TABLET PO SCH (18:46)
[2019-06-13] MEDS: QUEtiapine FUMARATE 100 MG TABLET (FP) PO SCH (21:09)
[2019-06-13] MEDS: THIAMINE HCL 100 MG TABLET (FP) PO SCH (21:10)
[2019-06-14] MEDS: amLODIPine BESYLATE 5 MG TABLET (FP) PO SCH (10:20)
[2019-06-14] MEDS: GABAPENTIN 300 MG CAPSULE (FP) PO SCH ×2 (10:20→21:14)
[2019-06-14] MEDS: PRENATAL VITAMINS W/ FOLIC ACID TABLET (FP) PO SCH (10:20)
[2019-06-14] MEDS: levETIRAcetam 500 MG TABLET (FP) PO SCH ×2 (10:20→21:14)
[2019-06-14] MEDS: SULFAMETHOXAZOLE/TRIMETHOPRIM 400MG/80MG S.S. TABLET PO SCH (10:21)
[2019-06-14] MEDS: DAPSONE 100 MG TABLET PO SCH (10:21)
[2019-06-14] MEDS: DOLUTEGRAVIR SODIUM 50 MG TABLET (NON-FORMULARY) PO SCH (10:21)
[2019-06-14] MEDS: TIOTROPIUM BROMIDE 2.5 MCG (SPIRIVA) RESPIMAT INHALER IH SCH (10:21)
[2019-06-14] MEDS: EMTRICITABINE/TENOFOV ALAFENAM (DESCOVY) TABLET PO SCH (10:21)
[2019-06-14] MEDS: KETOCONOZOLE 2% TOPICAL CREAM 15 GM TUBE TP SCH (10:25)
[2019-06-14] MEDS: RIVAROXABAN 20 MG TABLET PO SCH (17:29)
[2019-06-14] MEDS: THIAMINE HCL 100 MG TABLET (FP) PO SCH (21:14)
[2019-06-14] MEDS: QUEtiapine FUMARATE 100 MG TABLET (FP) PO SCH (21:15)
[2019-06-15] MEDS: amLODIPine BESYLATE 5 MG TABLET (FP) PO SCH (11:06)
[2019-06-15] MEDS: levETIRAcetam 500 MG TABLET (FP) PO SCH ×2 (11:06→21:18)
[2019-06-15] MEDS: PRENATAL VITAMINS W/ FOLIC ACID TABLET (FP) PO SCH (11:06)
[2019-06-15] MEDS: GABAPENTIN 300 MG CAPSULE (FP) PO SCH ×2 (11:06→21:18)
[2019-06-15] MEDS: KETOCONOZOLE 2% TOPICAL CREAM 15 GM TUBE TP SCH (11:06)
[2019-06-15] MEDS: TIOTROPIUM BROMIDE 2.5 MCG (SPIRIVA) RESPIMAT INHALER IH SCH (11:06)
[2019-06-15] MEDS: SULFAMETHOXAZOLE/TRIMETHOPRIM 400MG/80MG S.S. TABLET PO SCH (11:06)
[2019-06-15] MEDS: EMTRICITABINE/TENOFOV ALAFENAM (DESCOVY) TABLET PO SCH (11:07)
[2019-06-15] MEDS: DOLUTEGRAVIR SODIUM 50 MG TABLET (NON-FORMULARY) PO SCH (11:07)
[2019-06-15] MEDS: DAPSONE 100 MG TABLET PO SCH (11:07)
[2019-06-15] MEDS: AZITHROMYCIN 600 MG TABLET PO SCH (11:09)
[2019-06-15 17:33] LABS: EPI CELLS 0.7 /HPF (0-5/HPF); HYALINE CASTS 1 /lpf (0-8); PH,URINE 5.5 (5.0-8.0); URINE APPEARANCE CLEAR; URINE BACTERIA 7180.8 /hpf (NEGATIVE); URINE BILIRUBIN NEGATIVE (NEGATIVE); URINE COLOR YELLOW; URINE GLUCOSE (UA) NEGATIVE (NEGATIVE); URINE KETONE NEGATIVE (NEGATIVE); URINE LEUK ESTERASE TRACE (NEGATIVE); URINE NITRITE POSITIVE (NEGATIVE); URINE PROTEIN NEGATIVE (NEGATIVE); URINE RBC 3 /hpf (0-4); URINE UROBILINOGEN 0.2 mg/dL (0.2-1.0); URINE WBC 14 /hpf (0-5)
[2019-06-15] MEDS: RIVAROXABAN 20 MG TABLET PO SCH (17:43)
[2019-06-15] MEDS: QUEtiapine FUMARATE 100 MG TABLET (FP) PO SCH (21:18)
[2019-06-15] MEDS: THIAMINE HCL 100 MG TABLET (FP) PO SCH (21:19)
[2019-06-16 06:54] VITALS: BP 100/66; PULSE 92; TEMP 98.1
[2019-06-16] MEDS: EMTRICITABINE/TENOFOV ALAFENAM (DESCOVY) TABLET PO SCH (09:57)
[2019-06-16] MEDS: DOLUTEGRAVIR SODIUM 50 MG TABLET (NON-FORMULARY) PO SCH (09:57)
[2019-06-16] MEDS: TIOTROPIUM BROMIDE 2.5 MCG (SPIRIVA) RESPIMAT INHALER IH SCH (09:57)
[2019-06-16] MEDS: SULFAMETHOXAZOLE/TRIMETHOPRIM 400MG/80MG S.S. TABLET PO SCH (09:57)
[2019-06-16] MEDS: levETIRAcetam 500 MG TABLET (FP) PO SCH (09:58)
[2019-06-16] MEDS: amLODIPine BESYLATE 5 MG TABLET (FP) PO SCH (09:58)
[2019-06-16] MEDS: GABAPENTIN 300 MG CAPSULE (FP) PO SCH (09:58)
[2019-06-16] MEDS: PRENATAL VITAMINS W/ FOLIC ACID TABLET (FP) PO SCH (09:58)
[2019-06-16] MEDS: DAPSONE 100 MG TABLET PO SCH (09:58)
[2019-06-16] MEDS: KETOCONOZOLE 2% TOPICAL CREAM 15 GM TUBE TP SCH (10:00)
--- NOTE | 2019-06-16 15:23 | DS ---
[facility] Rehab Discharge Summary - [facility] Rehab Discharge Summary Admission Date: 06/09/19 Discharge Date: 06/16/19 - History Present History: Cocaine dependence Additional Comments: Pt is a 48 y/o male with a hx of crack/cocaine dependence admitted to rehab and discharged today. Pt requesting an early discharge to follow up with his qa software tester appointment on 06/18/19 @ 11:[address] roula Moon at [place], [place]. Pt also reports he has a primary care provider, Dr.Angelica Paloma Marie who he sees every 3-4 months but was last seen in March 2019. Ph; . Pertinent Past History: Asthma COPD HIV+/AIDS HTN DVT PE Heart Aterial Stent IVC filter Chronic Leg Edema,Bilateral Seizure Disorder Anemia Neuropathy related to HIV disease BPH - Discharge Physical Exam Vital Signs: Vital Signs Temperature 98.1 F 06/16/19 06:53 Pulse Rate 92 H 06/16/19 06:53 Respiratory Rate 20 06/16/19 06:53 Blood Pressure 100/66 06/16/19 06:53 O2 Sat by Pulse Oximetry (%) Alert o x 3 nad ambulating with a walker, with steady gait Extremities/Skin:Odell. leg edema, no skin breaks Pertinent Admission Physical Exam Findings: Laboratory Tests 06/10/19 06/10/19 06/10/19 08:05 08:13 08:13 WBC 1.6 L* RBC 3.63 L Hgb 11.0 L Hct 32.3 L MCV 89.0 MCH 30.2 MCHC 33.9 RDW 15.7 D Plt Count 124 L MPV 8.7 Absolute Neuts (auto) Neutrophils % Lymphocytes % Monocytes % Eosinophils % Basophils % Nucleated RBC % PT with INR 11.50 INR 0.97 Sodium 142 Potassium 4.2 Chloride 110 H Carbon Dioxide 27 Anion Gap 6 L BUN 18.8 H Creatinine 0.9 Est GFR (CKD-EPI)AfAm 118.30 Est GFR (CKD-EPI)NonAf 102.07 Random Glucose 99 Calcium 8.3 L Total Bilirubin 0.4 AST 18 ALT 18 Alkaline Phosphatase 75 Total Protein 6.2 L Albumin 3.3 L Urine Color Urine Appearance Urine pH Ur Specific Moodus Urine Protein Urine Glucose (UA) Urine Ketones Urine Blood Urine Nitrite Urine Bilirubin Urine Urobilinogen Ur Leukocyte Esterase Urine WBC (Auto) Urine RBC (Auto) Urine Casts (Auto) U Epithel Cells (Auto) Urine Bacteria (Auto) Levetiracetam RPR Titer 06/10/19 06/10/19 06/11/19 08:13 08:13 09:25 WBC 2.2 L RBC 3.55 L Hgb 10.8 L Hct 31.7 L MCV 89.2 MCH 30.4 MCHC 34.1 RDW 15.6 Plt Count 121 L MPV 8.7 Absolute Neuts (auto) 1.3 L Neutrophils % 58.2 D Lymphocytes % 22.5 D Monocytes % 6.0 Eosinophils % 12.5 H D Basophils % 0.8 Nucleated RBC % 0 PT with INR INR Sodium Potassium Chloride Carbon Dioxide Anion Gap BUN Creatinine Est GFR (CKD-EPI)AfAm Est GFR (CKD-EPI)NonAf Random Glucose Calcium Total Bilirubin AST ALT Alkaline Phosphatase Total Protein Albumin Urine Color Urine Appearance Urine pH Ur Specific Moodus Urine Protein Urine Glucose (UA) Urine Ketones Urine Blood Urine Nitrite Urine Bilirubin Urine Urobilinogen Ur Leukocyte Esterase Urine WBC (Auto) Urine RBC (Auto) Urine Casts (Auto) U Epithel Cells (Auto) Urine Bacteria (Auto) Levetiracetam 4.8 L RPR Titer Nonreactive 06/15/19 13:40 WBC RBC Hgb Hct MCV MCH MCHC RDW Plt Count MPV Absolute Neuts (auto) Neutrophils % Lymphocytes % Monocytes % Eosinophils % Basophils % Nucleated RBC % PT with INR INR Sodium Potassium Chloride Carbon Dioxide Anion Gap BUN Creatinine Est GFR (CKD-EPI)AfAm Est GFR (CKD-EPI)NonAf Random Glucose Calcium Total Bilirubin AST ALT Alkaline Phosphatase Total Protein Albumin Urine Color Yellow Urine Appearance Clear Urine pH 5.5 Ur Specific Moodus 1.019 Urine Protein Negative Urine Glucose (UA) Negative Urine Ketones Negative Urine Blood Negative Urine Nitrite Positive H Urine Bilirubin Negative Urine Urobilinogen 0.2 Ur Leukocyte Esterase Trace Urine WBC (Auto) 14 Urine RBC (Auto) 3 Urine Casts (Auto) 1 U Epithel Cells (Auto) 0.7 Urine Bacteria (Auto) 7180.8 Levetiracetam RPR Titer Labs discussed with patient. Pt wants to leave today declined repeat UA but has been given a copy of results which patient states he will follow up with his own doctor instead of a repeat or treatment here for any abnormal results above. - Treatment Discharge Condition: Discharge condition good Hospital Course: Rehabilitated safely and responded well CD aftercare referral accepted - Medication Discharge Medications: Ambulatory Orders Quetiapine Fumarate [Seroquel -] 50 tab PO HS 06/09/19 levETIRAcetam [Keppra -] 500 mg PO BID 06/09/19 Albuterol Sulfate Inhaler - [Ventolin HFA Inhaler -] 2 inh PO Q4H PRN #1 inhaler 06/16/19 Amlodipine Besylate [Norvasc -] 5 tbs PO DAILY #30 tablet 06/16/19 Azithromycin [Zithromax 600mg Tablets -] 1 tab PO TUFR 30 Days tablet 06/16/19 Dapsone - 100 mg PO DAILY #30 tablet 06/16/19 Dolutegravir Sodium [Tivicay] 50 mg PO DAILY #30 tablet 06/16/19 Emtricitabine/Tenofov Alafenam [Descovy 200-25 mg Tablet (Nf)] 1 each PO DAILY # 30 tablet 06/16/19 Gabapentin [Neurontin -] 300 mg PO BID #60 capsule 06/16/19 Rivaroxaban [Xarelto -] 20 mg PO DAILY #30 tablet 06/16/19 Sulfamethoxazole/Trimethoprim [Bactrim DS -] 1 tab PO DAILY #30 tablet 06/16/19 Tiotropium [place] [Spiriva] 1 inh PO DAILY #1 cap.w.dev 06/16/19 - Medication-Assisted Treatment (MAT) Medication-Assisted Treatment (MAT): No - Discharge Instructions Diet, activity, other medical instructions: Diet:NIK Activity: oob ad victorino Other medical instructions:Follow up with CD aftercare referral at [facility] outpatient program. Follow up with Primary Care provider/Fixed Assets Accountant as scheduled above. - Diagnosis (1) Cocaine dependence Status: Chronic Qualifiers: Substance use status: uncomplicated Qualified Code(s): F14.20 - Cocaine dependence, uncomplicated (2) Seizure disorder Status: Chronic (3) Venous stasis dermatitis of both lower extremities Status: Chronic (4) AIDS (acquired immune deficiency syndrome) Status: Chronic (5) Anemia Status: Chronic (6) Asthma Status: Chronic Qualifiers: Asthma severity: mild intermittent Asthma complication type: uncomplicated Qualified Code(s): J45.20 - Mild intermittent asthma, uncomplicated (7) BPH (benign prostatic hyperplasia) Status: Chronic Qualifiers: Lower urinary tract symptom detail: unspecified (8) COPD (chronic obstructive pulmonary disease) Status: Chronic Qualifiers: COPD type: unspecified COPD Qualified Code(s): J44.9 - Chronic obstructive pulmonary disease, unspecified (9) Essential (primary) hypertension Status: Chronic (10) Leg edema Status: Chronic (11) Nicotine dependence Status: Chronic Qualifiers: Nicotine product type: cigarettes Substance use status: uncomplicated Qualified Code(s): F17.210 - Nicotine dependence, cigarettes, uncomplicated (12) Presence of IVC filter Status: Chronic (13) History of DVT (deep vein thrombosis) Status: Resolved (14) History of pulmonary embolus (PE) Status: Resolved - Follow-up Referral Minutes to complete discharge: 30 - AMA Did Patient Leave Against Medical Advice: No
== END 2019-06-16 12:25 | disposition home or self-care (01) | DRG 772 ==
LOC: YASAS 12:36 → Y5N 18:56
PROVIDERS: ADMIT Neuromusculoskeletal Medicine & OMM; ATTEND Neuromusculoskeletal Medicine & OMM
PROC: HZ42ZZZ Group Counseling for Substance Abuse Treatment, Cognitive-Behavioral (ICD-10-PCS; principal; 2019-06-14)
DX: F14.20 Cocaine dependence, uncomplicated (principal); F17.210 Nicotine dependence, cigarettes, uncomplicated; F19.24 Other psychoactive substance dependence with psychoactive substance-induced mood disorder; F31.9 Bipolar disorder, unspecified; I10 Essential (primary) hypertension; I25.10 Atherosclerotic heart disease of native coronary artery without angina pectoris; B20 Human immunodeficiency virus [HIV] disease; N40.0 Benign prostatic hyperplasia without lower urinary tract symptoms; B35.3 Tinea pedis; B35.6 Tinea cruris; B35.9 Dermatophytosis, unspecified; J45.20 Mild intermittent asthma, uncomplicated; I87.2 Venous insufficiency (chronic) (peripheral); G40.909 Epilepsy, unspecified, not intractable, without status epilepticus; D64.9 Anemia, unspecified; J44.9 Chronic obstructive pulmonary disease, unspecified; R60.0 Localized edema; G99.0 Autonomic neuropathy in diseases classified elsewhere; E66.9 Obesity, unspecified; Z68.31 Body mass index [BMI] 31.0-31.9, adult; Z86.73 Personal history of transient ischemic attack (TIA), and cerebral infarction without residual deficits; Z95.5 Presence of coronary angioplasty implant and graft; Z79.01 Long term (current) use of anticoagulants; Z95.828 Presence of other vascular implants and grafts; Z86.718 Personal history of other venous thrombosis and embolism; Z86.711 Personal history of pulmonary embolism; Z91.5 Personal history of self-harm
CPT/HCPCS: 36415; 80053; 80177; 81003; 85025; 85027; 85610; 86593